=== PATIENT | female | born 2000 | race American Indian/Alaskan Native ===

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

== ENCOUNTER 2022-02-28 21:09 | Emergency (ER) | payer MEDICAID | END 2022-02-28 21:30 | disposition left against medical advice (07) | LOC: ED 21:09 | DX: R11.10 Vomiting, unspecified (principal); Z53.21 Procedure and treatment not carried out due to patient leaving prior to being seen by health care provider ==

== ENCOUNTER 2022-03-02 23:10 | Emergency (ER) | payer MEDICAID ==
[2022-03-02 23:47] VITALS: BP 135/71
== END 2022-03-03 07:00 | disposition left against medical advice (07) ==
LOC: ED 23:10
DX: O21.9 Vomiting of pregnancy, unspecified (principal); Z53.21 Procedure and treatment not carried out due to patient leaving prior to being seen by health care provider; Z3A.00 Weeks of gestation of pregnancy not specified